=== PATIENT | female | born 1940 | race Caucasian/White ===

== ENCOUNTER → 2023-11-17 10:26 | Outpatient (REF) | payer OTHER, SELFPAY ==
[2023-11-17 14:01] LABS: ALT (SGPT) 19 U/L (0-35); AST (SGOT) 26 U/L (14-36); Albumin 4.6 g/dl (3.5-5.0); Alkaline Phosphatase 93 U/L (38-126); Blood Urea Nitrogen 26 mg/dl (7-17); Calcium 10.6 mg/dl (8.4-10.2); Carbon Dioxide 27 mmol/L (22-30); Chloride 100 mmol/L (98-107); Glucose 99 mg/dl (70-99); Potassium 4.8 mmol/L (3.5-5.1); Sodium 135 mmol/L (135-145); Total Bilirubin 0.7 mg/dl (0.2-1.3); Total Protein 7.4 g/dl (6.3-8.2); eGFR 55.55
[2023-11-17 14:36] LABS: Free T4 1.56 ng/dl (0.78-2.19); Vitamin D, 25-OH*** 51.4 ng/mL (30-80)
[2023-11-17 14:49] LABS: TSH 0.49 uIU/ml (0.47-4.68)
[2023-11-17 20:03] LABS: CA 125 9.8 U/mL (0-35)
[2023-11-18 08:44] LABS: Intact PTH 50.7 pg/ml (13.6-85.8)
== END ==
LOC: HWLAB 10:26
PROVIDERS: ATTENDING PHYSICIAN Internal Medicine Endocrinology, Diabetes & Metabolism; FAMILY PHYSICIAN Family Medicine; OTHER PHYSICIAN Obstetrics & Gynecology Gynecologic Oncology
DX: E03.9 Hypothyroidism, unspecified (principal); E21.3 Hyperparathyroidism, unspecified; C54.1 Malignant neoplasm of endometrium
CPT/HCPCS: 36415; 80053; 82306; 83970; 84439; 84443; 86304

== ENCOUNTER → 2024-03-24 09:29 | Outpatient (REF) | payer OTHER, SELFPAY ==
[2024-03-24 12:40] LABS: Erythrocyte Sed Rate 24 mm/hour (0-20)
[2024-03-24 13:09] LABS: HDL Cholesterol 71 mg/dl; LDL Cholesterol, Calculated 89 mg/dl; Total Cholesterol 213 mg/dl (50-199); Triglyceride 265 mg/dl (10-149); Uric Acid 8.9 mg/dl (2.5-6.2); Very Low Density Lipoprotein 53 mg/dl (0-30)
== END ==
LOC: HWWDC 09:29
PROVIDERS: ATTENDING PHYSICIAN Obstetrics & Gynecology Gynecologic Oncology; FAMILY PHYSICIAN Family Medicine; OTHER PHYSICIAN Internal Medicine Cardiovascular Disease
DX: M35.3 Polymyalgia rheumatica (principal); M10.09 Idiopathic gout, multiple sites; E78.00 Pure hypercholesterolemia, unspecified; Z12.31 Encounter for screening mammogram for malignant neoplasm of breast
CPT/HCPCS: 36415; 77063; 77067; 80061; 84550; 85652; 86140

== ENCOUNTER → 2024-10-28 09:32 | Outpatient (REF) | payer OTHER, SELFPAY ==
[2024-10-28 11:38] LABS: % Basophils 0.7 % (0-2); % Eosinophils 2.4 % (0-6); % Immature Granulocytes 0.4 % (0-0.5); % Monocytes 9.8 % (1.7-9.3); % Neutrophils 62.7 % (42.2-75.2); Absolute Basophils 0.1 10^3/uL (0-0.2); Absolute Eosinophils 0.3 10^3/uL (0-0.7); Absolute Lymphocytes 2.5 10^3/uL (1.2-3.4); Absolute Neutrophils 6.6 10^3/uL (1.4-6.5); Hematocrit 41.2 % (37.0-47.0); Hemoglobin 13.5 g/dL (12.0-16.0); Mean Corp Hgb Conc. 32.8 g/dL (33.0-37.0); Mean Corpuscular Hgb 29.3 pg (27.0-31.0); Mean Corpuscular Volume 89.4 fL (81.0-99.0); Mean Platelet Volume 10.3 fL (7.4-10.4); Nucleated Red Blood Cells % 0 %; Platelet Count 342 10^3/uL (130-400); Red Blood Cell Count 4.61 10^6/uL (4.20-5.40); Red Cell Dist. Width 12.5 % (11.5-14.5); White Blood Cell Count 10.5 10^3/uL (4.8-10.8)
[2024-10-28 11:55] LABS: ALT (SGPT) 25 U/L (0-35); AST (SGOT) 29 U/L (14-36); Albumin 4.2 g/dl (3.5-5.0); Alkaline Phosphatase 92 U/L (38-126); Blood Urea Nitrogen 31 mg/dl (7-17); Calcium 10.2 mg/dl (8.4-10.2); Carbon Dioxide 26 mmol/L (22-30); Chloride 99 mmol/L (98-107); Glucose 107 mg/dl (70-99); HDL Cholesterol 70 mg/dl; LDL Cholesterol, Calculated 86 mg/dl; Potassium 4.6 mmol/L (3.5-5.1); Sodium 138 mmol/L (135-145); Total Bilirubin 0.7 mg/dl (0.2-1.3); Total Cholesterol 183 mg/dl (50-199); Triglyceride 139 mg/dl (10-149); Very Low Density Lipoprotein 27 mg/dl (0-30); eGFR 55.21
[2024-10-28 12:25] LABS: TSH 0.53 uIU/ml (0.47-4.68)
== END ==
LOC: HWLAB 09:32
PROVIDERS: ATTENDING PHYSICIAN Family Medicine
DX: Z01.818 Encounter for other preprocedural examination (principal); M35.3 Polymyalgia rheumatica; E83.52 Hypercalcemia; E87.1 Hypo-osmolality and hyponatremia; R19.5 Other fecal abnormalities
CPT/HCPCS: 36415; 80053; 80061; 84443; 85025

== ENCOUNTER → 2024-11-03 12:37 | Outpatient (REF) | payer OTHER, SELFPAY ==
[2024-11-03 13:55] LABS: % Basophils 0.6 % (0-2); % Eosinophils 2.4 % (0-6); % Immature Granulocytes 0.4 % (0-0.5); % Lymphocytes 31.6 % (20.5-51.1); Absolute Basophils 0.1 10^3/uL (0-0.2); Absolute Eosinophils 0.3 10^3/uL (0-0.7); Absolute Lymphocytes 3.3 10^3/uL (1.2-3.4); Absolute Neutrophils 5.7 10^3/uL (1.4-6.5); Hematocrit 42.3 % (37.0-47.0); Hemoglobin 13.9 g/dL (12.0-16.0); Mean Corp Hgb Conc. 32.9 g/dL (33.0-37.0); Mean Corpuscular Volume 88.3 fL (81.0-99.0); Mean Platelet Volume 10.1 fL (7.4-10.4); Nucleated Red Blood Cells % 0 %; Platelet Count 416 10^3/uL (130-400); Red Blood Cell Count 4.79 10^6/uL (4.20-5.40); Red Cell Dist. Width 12.4 % (11.5-14.5); White Blood Cell Count 10.3 10^3/uL (4.8-10.8)
[2024-11-03 14:26] LABS: Uric Acid 8.8 mg/dl (2.5-6.2)
== END ==
LOC: REG 12:37
PROVIDERS: ATTENDING PHYSICIAN Nurse Practitioner Family; FAMILY PHYSICIAN Family Medicine
DX: M10.9 Gout, unspecified (principal)
CPT/HCPCS: 36415; 84550; 85025

== ENCOUNTER → 2025-01-10 12:16 | Outpatient (REF) | payer OTHER, SELFPAY | LOC: RAD 12:16 | PROVIDERS: ATTENDING PHYSICIAN Nurse Practitioner Adult Health; FAMILY PHYSICIAN Family Medicine | DX: L08.9 Local infection of the skin and subcutaneous tissue, unspecified (principal); L03.90 Cellulitis, unspecified; Z89.429 Acquired absence of other toe(s), unspecified side; Z87.39 Personal history of other diseases of the musculoskeletal system and connective tissue | CPT/HCPCS: 73630 ==

== ENCOUNTER → 2025-03-11 13:54 | Outpatient (REF) | payer OTHER, SELFPAY ==
[2025-03-11 15:18] LABS: C-Reactive Protein 5.50 mg/L (0.0-10.00)
== END ==
LOC: REG 13:54
PROVIDERS: ATTENDING PHYSICIAN Internal Medicine Rheumatology; FAMILY PHYSICIAN Family Medicine
DX: M35.3 Polymyalgia rheumatica (principal); I47.10 Supraventricular tachycardia, unspecified
CPT/HCPCS: 36415; 85652; 86140; 93005

== ENCOUNTER → 2025-05-23 10:14 | Outpatient (REF) | payer OTHER, SELFPAY ==
[2025-05-23 14:35] LABS: Hematocrit 41.6 % (37.0-47.0); Hemoglobin 13.6 g/dL (12.0-16.0); Mean Corp Hgb Conc. 32.7 g/dL (33.0-37.0); Mean Corpuscular Volume 88.7 fL (81.0-99.0); Nucleated Red Blood Cells % 0 %; Platelet Count 394 10^3/uL (130-400); Red Cell Dist. Width 13.2 % (11.5-14.5)
[2025-05-23 15:02] LABS: ALT (SGPT) 20 U/L (0-35); AST (SGOT) 25 U/L (14-36); Albumin 4.5 g/dl (3.5-5.0); Alkaline Phosphatase 93 U/L (38-126); Blood Urea Nitrogen 30 mg/dl (7-17); Calcium 9.9 mg/dl (8.4-10.2); Carbon Dioxide 27 mmol/L (22-30); Chloride 98 mmol/L (98-107); Glucose 95 mg/dl (70-99); Potassium 4.4 mmol/L (3.5-5.1); Sodium 132 mmol/L (135-145); Total Protein 7.3 g/dl (6.3-8.2); eGFR 49.24
[2025-05-23 18:50] LABS: CA 125 10.9 U/mL (0-35)
== END ==
LOC: HWLAB 10:14
PROVIDERS: ATTENDING PHYSICIAN Obstetrics & Gynecology Gynecologic Oncology; FAMILY PHYSICIAN Family Medicine
DX: C54.1 Malignant neoplasm of endometrium (principal)
CPT/HCPCS: 36415; 80053; 85025; 86304